=== PATIENT | male | born 1985 | race Caucasian/White ===

== ENCOUNTER 2024-03-08 08:55 | Outpatient (CLI) | payer OTHER, SELFPAY | END 2024-03-08 08:56 | disposition home or self-care (01) | LOC: NFLDREF 03-15 02:27 | PROVIDERS: PCP Internal Medicine; Referring Provider Internal Medicine; Visit Provider Internal Medicine | DX: I10 Essential (primary) hypertension (principal); Z13.6 Encounter for screening for cardiovascular disorders | CPT/HCPCS: 80053; 80061; 81241 ==